=== PATIENT | female | born 2000 | race Caucasian/White ===

== ENCOUNTER 2023-03-14 14:18 | Emergency (ER) | payer OTHER, SELFPAY ==
--- NOTE | 2023-03-14 14:24 | ED.NAVMDI ---
HPI - Nausea/Vomiting/Diarrhea General Chief complaint: Abdominal Pain Stated complaint: Chest pain, Nausea,Stomach pain Source: patient and RN notes reviewed Mode of arrival: ambulatory Limitations: no limitations History of Present Illness HPI Narrative: Patient is a 22-year-old female who presents to the [facility] with multiple complaints. Patient states that she gets A get feeling in her upper abdomen; she states that this is not a pain. She states that after she gets this got feeling, she has a tightness in her chest accompanied with some mild shortness of breath. She does admit to feeling anxious at the time she is having the symptoms. She states that the symptoms increased her anxiety. She also endorses some mild nausea and dizziness with the symptoms are present. She has also noted tingling in bilateral arms when these symptoms are present. She states that these episodes occurred a couple times yesterday and 3 times today. She denies any cardiac history. Denies chest pain currently. Related Data Allergies Allergy/AdvReac Type Severity Reaction Status Date / Time No Known Allergies Allergy Unverified 04/29/11 12:30 Review of Systems Review of Systems: CONSTITUTIONAL: Denies fever, chills, or sweats. EYES: Denies visual changes, redness, or discharge. ENT: Denies otalgia and sore throat CARDIOVASCULAR: Reports chest tightness, but denies palpitations or edema. RESPIRATORY: Denies cough but reports dyspnea. GASTROINTESTINAL: Denies abdominal pain, vomiting, or diarrhea. Reports nausea. GENITOURINARY: Denies dysuria or hematuria. SKIN: Denies rash or itching. MUSCULOSKELETAL: Denies back pain, joint pain, or myalgia. NEUROLOGIC: Denies headache, numbness, or weakness. Reports dizziness. Pertinent positives per HPI. [facility] Past Medical History Medical History (Updated 03/14/23 @ 14:50 by Deandra Kent APRN) Migraines Surgical History Surgical History [place] teeth extracted 2015 Family History Family History Other Breast cancer Diabetes mellitus Social History Social History Smoking status: Never smoker Alcohol intake: never Comments At the time of my signature, I reviewed and agree with the nursing past medical, surgical, social, and family history. There is no relevant family history pertinent to the patient complaint. Exam Narrative: GENERAL: This is a well-nourished, well-developed patient, in no apparent distress. HEAD: normocephalic, atraumatic. EYES: Sclera clear/white. Vision is grossly intact. EARS: External ears normal. Hearing grossly intact. NOSE: External nose normal with no obvious nasal discharge, nares without redness, no rhinorrhea. THROAT: Mucous membranes moist, posterior pharynx clear. NECK: Neck supple, non-tender without lymphadenopathy, masses or thyromegaly. CARDIOVASCULAR: Regular rate and rhythm without murmurs, gallops, or rubs. RESPIRATORY: Clear to auscultation. Breath sounds equal bilaterally. No wheezes, rales, or rhonchi. GASTROINTESTINAL: Abdomen soft, non-tender, nondistended. Bowel sounds are active. No hepato-splenomegaly, or palpable masses. No guarding. SKIN: warm, intact with no suspicious lesions or rash, good texture and turgor. NEURO: awake, alert, and oriented to person, place and time. There were no obvious focal neurologic abnormalities. Course Course Level of Care: Express Care Visit Vital Signs Vital signs: Vital Signs Temperature 98.4 F 03/14/23 14:26 Pulse Rate 94 03/14/23 14:26 Respiratory Rate 20 03/14/23 14:26 Blood Pressure 130/79 03/14/23 14:26 Pulse Oximetry 100 03/14/23 14:26 Temperature 98.4 F 03/14/23 14:26 Pulse Rate 94 03/14/23 14:26 Respiratory Rate 20 03/14/23 14:26 Blood Pressure 130/79 03/14/23 14:2
[2023-03-14 14:26] VITALS: BP 130/79; PULSE 94; RESP 20; TEMP 36.9; O2SAT 100
--- NOTE | 2023-03-14 14:46 | ECG_ITS ---
Measurements Intervals [place] Rate: 67 P: 0 [place]: 141 QRS: 34 QRSD: 87 T: 29 QT: 380 QTc: 402 Interpretive Statements SINUS RHYTHM NONSPECIFIC T-WAVE ABNORMALITY NO PREVIOUS ECG AVAILABLE FOR COMPARISON Electronically Signed On 03-14-2023 16:36:08 CDT by Mikie Villatoro M.D.
== END 2023-03-14 14:52 | disposition home or self-care (01) ==
PROVIDERS: Emergency Provider Nurse Practitioner
DX: F41.9 Anxiety disorder, unspecified (principal)
CPT/HCPCS: 93005; 99203; G0463